=== PATIENT | female | born 1975 | race American Indian/Alaskan Native ===

== ENCOUNTER 2016-10-12 09:48 | Emergency (ER) | payer OTHER ==
[2016-10-12 10:00] VITALS: BP 171/104; PULSE 82; RESP 20; TEMP 98.9; O2SAT 100; BMI 44.1
[2016-10-12] MEDS ORDERED: Sodium Chloride 0.9% 1,000 ML IV STA ×5 (10:27→12:30)
--- NOTE | 2016-10-12 10:31 | ED PDOC ---
HPI:Nausea, Vomiting, Diarrhea Time Seen by Provider: 10/12/16 10:12 Chief Complaint (Nursing): GI Problem Chief Complaint (Provider): Vomiting and diarrhea x 3 days History Per: Patient History/Exam Limitations: no limitations Onset/Duration Of Symptoms: Days Current Symptoms Are (Timing): Still Present Context: Food (Pt states it began shortly after eating [employer] ) Associated Symptoms: Nausea, Vomiting, Diarrhea, Loss Of Appetite. denies: Fever, Chills, Back Pain, Chest Pain, Constipation, Urinary Symptoms Additional Complaint(s): Pt denies abdominal pain. Pt state she feels like she was able to hold down more liquid today than the past 2 days but is still vomiting. PT states that her son also ate the pizza with her but he did not have ranch dressing like she did. Past Medical History Reviewed: Historical Data, Nursing Documentation, Vital Signs Vital Signs: Last Vital Signs Temp 98.9 F 10/12/16 09:59 Pulse 82 10/12/16 09:59 Resp 20 10/12/16 09:59 BP 171/104 H 10/12/16 09:59 Pulse Ox 100 10/12/16 09:59 - Medical History PMH: Arthritis (psoriatic) Denies: HTN - Surgical History Surgical History: No Surg Hx - Family History Family History: States: Unknown Family Hx - Living Arrangements Living Arrangements: With Family - Social History Current smoker - smoking cessation education provided: No Alcohol: None Drugs: Denies - Home Medications Home Medications: Ambulatory Orders Medication Instructions Recorded Acetaminophen with Codeine 1 tab PO Q8 #10 tab 04/03/14 [Tylenol with Codeine No. 3 300 mg-30 mg] Albuterol 0.042% [Albuterol 0.042% 3 ml IH QID PRN #20 units 04/23/14 Inhal Adelia (1.25mg/3ml) UD] Azithromycin 250 mg PO DAILY #6 tab 04/23/14 Albuterol Sulfate [Ventolin Hfa] 0.09 mg IH Q4 PRN #1 inh 02/20/15 Benzonatate [Tessalon Perles] 1 sgl PO BID PRN #20 sgl 02/20/15 Prednisone 2 tab PO DAILY #10 tab 02/20/15 Famotidine [Pepcid] 20 mg PO BID #28 tab 10/12/16 Metoclopramide HCl [Reglan] 10 mg PO Q8H #20 tablet 10/12/16 - Allergies Allergies/Adverse Reactions: Allergies Allergy/AdvReac Type Severity Reaction Status Date / Time No Known Allergies Allergy Verified 10/12/16 10:25 Review of Systems ROS Statement: Except As Marked, All Systems Reviewed And Found Negative Gastrointestinal: Positive for: Nausea, Vomiting, Diarrhea Physical Exam - Reviewed Nursing Documentation Reviewed: Yes Vital Signs Reviewed: Yes - Physical Exam Appears: Positive for: Well, Non-toxic, No Acute Distress Head Exam: Positive for: ATRAUMATIC, NORMAL INSPECTION, NORMOCEPHALIC Skin: Positive for: Normal Color, Warm, DRY Eye Exam: Positive for: Normal appearance, EOMI, PERRL ENT: Positive for: Normal ENT Inspection Neck: Positive for: Normal, Painless ROM Cardiovascular/Chest: Positive for: Regular Rate, Rhythm Respiratory: Positive for: CNT, Normal Breath Sounds Gastrointestinal/Abdominal: Positive for: Normal Exam, Bowel Sounds, Soft Back: Positive for: Normal Inspection Extremity: Positive for: Normal ROM Neurologic/Psych: Positive for: Alert, Oriented - Laboratory Results Result Diagrams: 10/12/16 10:55 10/12/16 10:55 - ECG O2 Sat by Pulse Oximetry: 100 Disposition - Clinical Impression Clinical Impression: Gastroenteritis - Patient ED Disposition Is Patient to be Admitted: No Counseled Patient/Family Regarding: Diagnosis, Need For Followup, Rx Given - Disposition Referrals: [facility] [Outside] Disposition: Routine/Home Disposition Time: 14:06 Condition: GOOD Prescriptions: Famotidine [Pepcid] 20 mg PO BID #28 tab Metoclopramide HCl [Reglan] 10 mg PO Q8H #20 tablet Instructions: Gastroenteritis in Children (ED) Forms: [facility] ED School/Work Excuse
[2016-10-12 11:02] LABS: BASO % 1.1 % (0.0-2.0); EOS # 0.2 K/uL (0.0-0.7); EOS % 6.1 % (0.0-4.0); HEMATOCRIT 40.2 % (34.0-47.0); LYMPH # 0.5 K/uL (1.0-4.3); LYMPH % 13.5 % (20.0-40.0); MEAN CELL VOLUME 83.7 fl (81.0-99.0); MEAN CORPUSCULAR HEMOGLOBIN 27.5 pg (27.0-31.0); MEAN CORPUSCULAR HGB CONC 32.8 g/dL (33.0-37.0); MONO # 0.7 K/uL (0.0-0.8); MONO % 16.9 % (0.0-10.0); NEUT # 2.4 K/uL (1.8-7.0); NEUT % 62.4 % (50.0-75.0); NRBC % 0.1 % (0.0-0.0); RED CELL DISTRIBUTION WIDTH 14.2 % (11.5-14.5); WHITE BLOOD COUNT 3.9 K/uL (4.8-10.8)
[2016-10-12 11:19] LABS: ALB/GLOB RATIO 0.9 (1.0-2.1); ALKALINE PHOSPHATASE 79 U/L (38-126); ALT/SGPT 46 U/L (9-52); AST/SGOT 58 U/L (14-36); BILIRUBIN,TOTAL 0.6 mg/dl (0.2-1.3); BLOOD UREA NITROGEN 9 mg/dl (7-17); CALCIUM 9.4 mg/dL (8.4-10.2); CARBON DIOXIDE 29 mmol/L (22-30); CHLORIDE 96 mmol/L (98-107); GFR AFRICAN-AMERICAN > 60; GLUCOSE,RANDOM 214 mg/dL (65-105); POTASSIUM 3.8 MMOL/L (3.6-5.0); SODIUM 135 mmol/l (132-148); TOTAL PROTEIN 8.8 G/DL (6.3-8.2)
== END 2016-10-12 15:10 | disposition home or self-care (01) ==
LOC: H.ER 09:48
DX: K52.9 Noninfective gastroenteritis and colitis, unspecified (principal)